=== PATIENT | female | born 1965 | race Caucasian/White ===

== ENCOUNTER → 2017-02-03 | Outpatient (CLI) | payer BC ==
[2017-02-03 07:33] LABS: Urine RBC None Seen /hpf (0 - 4)
[2017-02-03 07:41] LABS: Basophils # (auto) 0.1 uL; Eosinophils # (auto) 0.1 uL; Eosinophils % (auto) 2.4 % (0.0-7.0); Hematocrit 41.8 % (36.0-46.0); Hemoglobin 14.1 g/dL (12.2-16.2); Lymphocytes # (auto) 2.1 uL; Lymphocytes % (auto) 37.5 % (10.0-50.0); Mean Corpuscular Hemoglobin 31.4 pg (28.0-32.0); Mean Corpuscular Hgb Conc. 33.8 g/dL (32.0-36.0); Mean Corpuscular Volume 92.8 fL (80.0-100.0); Mean Platelet Volume 7.9 fL (6.9-10.8); Monocytes # (auto) 0.3 uL; Neutrophils % (auto) 53.1 % (37.0-80.0); Nucleated Red Blood Cells % 0.1 %; Platelet Count (auto) 238 10^3/uL (140-450); Red Cell Distribution Width 13.4 % (11.8-14.3); White Blood Cell 5.7 10^3/uL (4.4-10.8)
[2017-02-03 08:32] LABS: Albumin 4.3 g/dL (3.4-5.0); BUN/Creatinine Ratio 13.5; Bilirubin, Total 0.6 mg/dL (0.2-1.0); Calcium 9.7 mg/dL (8.5-10.1); Potassium 4.3 mmol/L (3.5-5.1); Total Protein 7.9 g/dL (6.4-8.2)
[2017-02-03 08:34] LABS: Urine Bilirubin Negative (Negative); Urine Blood Negative /uL (Negative); Urine Glucose Normal (Normal); Urine Ketone Negative (Negative); Urine Nitrite Negative (Negative); Urine Squamous Epithelial Cell FEW /hpf (<5); Urine Urobilinogen Normal (Negative); Urine pH 7.5 (5.0-8.0)
[2017-02-03 09:25] LABS: Urine Color Straw (Yellow)
== END | disposition home or self-care (01) ==
LOC: LAB 07:20
PROVIDERS: ATTEND Internal Medicine
DX: M25.579 Pain in unspecified ankle and joints of unspecified foot (principal); Z79.899 Other long term (current) drug therapy
CPT/HCPCS: 36415; 80053; 80061; 81001; 82306; 85025

== ENCOUNTER → 2018-03-29 | Outpatient (CLI) | payer BC ==
[2018-03-29 10:19] LABS: Basophils # (auto) 0 uL; Basophils % (auto) 0.4 % (0.0-2.0); Eosinophils # (auto) 0.2 uL; Eosinophils % (auto) 3.5 % (0.0-7.0); Hematocrit 43.6 % (36.0-46.0); Hemoglobin 14.5 g/dL (12.2-16.2); Lymphocytes # (auto) 2.3 uL; Lymphocytes % (auto) 38.6 % (10.0-50.0); Mean Corpuscular Hemoglobin 30.8 pg (28.0-32.0); Mean Corpuscular Hgb Conc. 33.2 g/dL (32.0-36.0); Mean Corpuscular Volume 92.9 fL (80.0-100.0); Monocytes # (auto) 0.4 uL; Monocytes % (auto) 6.4 % (0.0-12.0); Neutrophils % (auto) 51.1 % (37.0-80.0); Nucleated Red Blood Cells % 0.1 %; Platelet Count (auto) 238 10^3/uL (140-450); Red Cell Distribution Width 13.6 % (11.8-14.3); White Blood Cell 5.9 10^3/uL (4.4-10.8)
[2018-03-29 10:44] LABS: Albumin 4.1 g/dL (3.4-5.0); Calcium 9.1 mg/dL (8.5-10.1); Potassium 3.9 mmol/L (3.5-5.1)
[2018-03-29 10:50] LABS: BUN/Creatinine Ratio 13.3; Bilirubin, Total 0.6 mg/dL (0.2-1.0); Total Protein 7.9 g/dL (6.4-8.2)
[2018-03-29 10:57] LABS: Urine Amorphous Crystal FEW /hpf (None Seen); Urine Bacteria MANY /hpf (None Seen); Urine Blood Negative /uL (Negative); Urine Mucus FEW (None Seen); Urine Specific Gravity 1.017 (1.001-1.035); Urine WBC 15 /hpf (0 - 5)
== END | disposition home or self-care (01) ==
LOC: LAB 09:41
PROVIDERS: ATTEND Internal Medicine
DX: M81.0 Age-related osteoporosis without current pathological fracture (principal)
CPT/HCPCS: 36415; 80053; 80061; 81001; 82306; 84439; 84443; 85025; 85652

== ENCOUNTER → 2018-12-21 | Outpatient (CLI) | payer OTHER ==
[2018-12-21 10:31] LABS: Basophils # (auto) 0 uL; Basophils % (auto) 0.6 % (0.0-2.0); Eosinophils # (auto) 0.2 uL; Eosinophils % (auto) 3.8 % (0.0-7.0); Hematocrit 36.9 % (36.0-46.0); Hemoglobin 12.6 g/dL (12.2-16.2); Lymphocytes # (auto) 1.7 uL; Lymphocytes % (auto) 29.5 % (10.0-50.0); Mean Corpuscular Hemoglobin 31.5 pg (28.0-32.0); Mean Corpuscular Hgb Conc. 34.2 g/dL (32.0-36.0); Mean Corpuscular Volume 92.1 fL (80.0-100.0); Monocytes # (auto) 0.9 uL; Monocytes % (auto) 16.2 % (0.0-12.0); Neutrophils # (auto) 2.9 uL; Neutrophils % (auto) 49.9 % (37.0-80.0); Nucleated Red Blood Cells % 0.1 %; Platelet Count (auto) 325 10^3/uL (140-450); Red Blood Cells 4.01 10^6/uL (4.0-5.20); Red Cell Distribution Width 15.7 % (11.8-14.3); White Blood Cell 5.7 10^3/uL (4.4-10.8)
[2018-12-21 12:17] LABS: PROCALCITONIN 0.13 ng/mL (0-0.1)
[2018-12-21 13:16] LABS: Albumin 3.2 g/dL (3.4-5.0); BUN/Creatinine Ratio 8.5; Calcium 9.1 mg/dL (8.5-10.1); Potassium 3.7 mmol/L (3.5-5.1)
[2018-12-21 13:25] LABS: Bilirubin, Total 0.3 mg/dL (0.2-1.0); CRP High Sensitivity 3.79 mg/dL (< 0.3); Pre Albumin 18.4 mg/dL (20.0-40.0); Total Protein 7.2 g/dL (6.4-8.2)
== END | disposition home or self-care (01) ==
LOC: LAB 10:08
DX: T81.30XA Disruption of wound, unspecified, initial encounter (principal); R90.0 Intracranial space-occupying lesion found on diagnostic imaging of central nervous system; C50.919 Malignant neoplasm of unspecified site of unspecified female breast; Z98.890 Other specified postprocedural states
CPT/HCPCS: 36415; 80053; 82040; 84146; 85025; 85652; 86141

== ENCOUNTER → 2020-07-03 | Outpatient (CLI) | payer OTHER | END | disposition home or self-care (01) | LOC: XYW 08:30 | PROVIDERS: ATTEND Internal Medicine | DX: I35.1 Nonrheumatic aortic (valve) insufficiency (principal); I10 Essential (primary) hypertension; C50.919 Malignant neoplasm of unspecified site of unspecified female breast | CPT/HCPCS: 93306 ==

== ENCOUNTER 2023-02-27 21:45 | Inpatient (IN) | payer OTHER ==
[~2023-02-27] VITALS: Ht 162.6 cm; Wt 58.2 kg
[2023-02-27 23:30] VITALS: PULSE 120; RESP 18; O2SAT 100
[2023-02-27 23:59] LABS: Hemoglobin 12.3 g/dL (12.2-16.2)
[2023-02-28 00:01] LABS: Hematocrit 38.6 % (36.0-46.0); Mean Corpuscular Hemoglobin 26.5 pg (28.0-32.0); Mean Corpuscular Volume 82.8 fL (80.0-100.0); Red Blood Cells 4.65 10^6/uL (4.0-5.20); White Blood Cell 6.2 10^3/uL (4.4-10.8)
[2023-02-28 00:07] LABS: Red Cell Distribution Width 24.8 % (11.8-14.3)
[2023-02-28 00:09] LABS: Basophils % (manual) 0 (0.0-2.0); Blast Cells 0; Eosinophils % (manual) 0 (0-7); Metamyelocytes % 0; Myelocytes % 0; Promyelocytes % 0; Reactive Lymphocytes 0
[2023-02-28 00:23] LABS: Lactic Acid w/Reflex 2.9 mmol/L (0.4-2.0)
[2023-02-28 00:27] LABS: Alanine Aminotransferase 11 U/L (7-40); Alkaline Phosphatase 102 U/L (46-116); Anion Gap 8 (5-15); Aspartate Aminotransferase 19 U/L (13-40); BUN/Creatinine Ratio 8.8 (10.0-20.0); Blood Urea Nitrogen 5 mg/dL (9-23); Carbon Dioxide 24 mmol/L (20-30); Chloride 105 mmol/L (98-107); Glucose 103 mg/dL (74-106); Potassium 4.4 mmol/L (3.5-5.1); Sodium 137 mmol/L (136-145)
[2023-02-28 00:28] LABS: Bilirubin, Total 0.9 mg/dL (0.2-1.0); Total Protein 6.3 g/dL (5.7-8.2)
[2023-02-28] MEDS ORDERED: MORPHINE SULFATE 4 MG/ML SYR/VIAL IV PRN (00:30)
[2023-02-28 00:51] LABS: Band Neutrophils % (manual) 12; Lymphocytes % (manual) 10 (10.0-50.0); Monocytes % (manual) 19 (0-12)
[2023-02-28 00:52] LABS: Anisocytosis Moderate; Ovalocytes MODERATE; Platelet Estimate Adequate
[2023-02-28 01:49] LABS: INR 1.07 (0.9-1.15); Partial Thromboplastin Time 25.6 SEC (24.5-34.5); Prothrombin Time 11.2 sec (9.3-11.8)
[2023-02-28 02:26] LABS: Urine Amorphous Crystal FEW /hpf (None Seen); Urine Bacteria NONE SEEN /hpf (None Seen); Urine Blood Negative /uL (Negative); Urine Clarity HAZY (Clear); Urine Color Yellow (Yellow); Urine Mucus FEW (None Seen); Urine Protein, UAD TRACE (Negative); Urine Specific Gravity 1.013 (1.001-1.035); Urine Urobilinogen Normal (Negative); Urine WBC 20 /hpf (0 - 5)
[2023-02-28] MEDS ORDERED: ACETAMINOPHEN 325 MG TAB PO PRN (05:45)
[2023-02-28] MEDS ORDERED: HYDROcodone-ACET 5/325MG TAB PO PRN (05:45)
[2023-02-28] MEDS ORDERED: ONDANSETRON HCL 4 MG/2 ML VIAL IV PRN (05:45)
[2023-02-28] MEDS ORDERED: MORPHINE SULFATE INJ 2 MG/ml SYRG IV PRN (05:45)
[2023-02-28] MEDS: GABAPENTIN 300 MG CAP PO SCH ×3 (06:08→22:14)
[2023-02-28] MEDS: SODIUM CHLORIDE 0.9% 1,000 ML IV SCH ×2 (06:08→19:07)
[2023-02-28 07:25] VITALS: RESP 18; O2SAT 100
[2023-02-28] MEDS: cefTRIAXone 1GM/50ML D5W 50 ML IV SCH (09:08)
[2023-02-28] MEDS: ENOXAPARIN SOD 40 MG/0.4 ML SYRINGE SC SCH (09:55)
[2023-02-28] MEDS ORDERED: IOHEXOL 350 MG/ML 100ML IJ ONE (17:02)
[2023-02-28 20:00] VITALS: PULSE 17; RESP 17; O2SAT 99
[2023-02-28 23:19] VITALS: BP 102/60; PULSE 95; RESP 18; TEMP 98.3; O2SAT 98
[2023-03-01 05:00] VITALS: BP 100/56; PULSE 91; RESP 18; TEMP 98.6; O2SAT 100
[2023-03-01] MEDS: SODIUM CHLORIDE 0.9% 1,000 ML IV SCH (06:02)
[2023-03-01] MEDS: GABAPENTIN 300 MG CAP PO SCH ×3 (06:02→22:17)
[2023-03-01 06:26] LABS: Mean Corpuscular Volume 81.6 fL (80.0-100.0); White Blood Cell 3.3 10^3/uL (4.4-10.8)
[2023-03-01 06:29] LABS: Hematocrit 29.3 % (36.0-46.0); Hemoglobin 9.6 g/dL (12.2-16.2); Mean Corpuscular Hemoglobin 26.7 pg (28.0-32.0); Mean Corpuscular Hgb Conc. 32.7 g/dL (32.0-36.0); Red Blood Cells 3.59 10^6/uL (4.0-5.20)
[2023-03-01 06:39] LABS: Albumin 2.9 g/dL (3.2-4.8); Alkaline Phosphatase 77 U/L (46-116); Anion Gap 9 (5-15); Aspartate Aminotransferase 22 U/L (13-40); BUN/Creatinine Ratio 23.7 (10.0-20.0); Bilirubin, Total 0.7 mg/dL (0.2-1.0); Blood Urea Nitrogen 9 mg/dL (9-23); Calcium 8.3 mg/dL (8.5-10.1); Carbon Dioxide 22 mmol/L (20-30); Chloride 106 mmol/L (98-107); Glucose 69 mg/dL (74-106); Potassium 3.4 mmol/L (3.5-5.1); Sodium 137 mmol/L (136-145); Total Protein 4.6 g/dL (5.7-8.2)
[2023-03-01 07:00] LABS: Red Cell Distribution Width 24.1 % (11.8-14.3)
[2023-03-01 07:02] LABS: Band Neutrophils % (manual) 0; Basophils % (manual) 0 (0.0-2.0); Blast Cells 0; Metamyelocytes % 0; Myelocytes % 0; Promyelocytes % 0; Reactive Lymphocytes 0
[2023-03-01 07:03] LABS: Alanine Aminotransferase < 9 U/L (7-40)
[2023-03-01 08:00] VITALS: RESP 18; O2SAT 98
[2023-03-01 09:00] VITALS: BP 117/71; PULSE 95; RESP 17; TEMP 98.4; O2SAT 98
[2023-03-01] MEDS: cefTRIAXone 1GM/50ML D5W 50 ML IV SCH (09:23)
[2023-03-01] MEDS: ENOXAPARIN SOD 40 MG/0.4 ML SYRINGE SC SCH (09:27)
[2023-03-01 10:15] LABS: Eosinophils % (manual) 3 (0-7); Lymphocytes % (manual) 21 (10.0-50.0); Monocytes % (manual) 23 (0-12)
[2023-03-01 10:16] LABS: Platelet Estimate Decreased
[2023-03-01 13:00] VITALS: BP_SYST 126; BP_SYST 152; BP_DIAS 64; BP_DIAS 75; PULSE 79; PULSE 88; RESP 17; RESP 19; TEMP 98; TEMP 99.2; O2SAT 90; O2SAT 98
[2023-03-01] MEDS ORDERED: POTASSIUM EFFERVESENT TAB 25 MEQ PO ONE (14:30)
[2023-03-01] MEDS: LACTULOSE 20Gm/30ML SOLN PO ONE ×2 (15:15→16:01)
[2023-03-01 15:27] LABS: Hematocrit 28.9 % (36.0-46.0); Hemoglobin 9.2 g/dL (12.2-16.2); Mean Corpuscular Volume 81.4 fL (80.0-100.0); Red Blood Cells 3.54 10^6/uL (4.0-5.20); White Blood Cell 4.8 10^3/uL (4.4-10.8)
[2023-03-01 15:28] LABS: Red Cell Distribution Width 23.7 % (11.8-14.3)
[2023-03-01 15:29] LABS: Basophils % (manual) 0 (0.0-2.0); Blast Cells 0; Eosinophils % (manual) 0 (0-7); Metamyelocytes % 0; Myelocytes % 0; Promyelocytes % 0; Reactive Lymphocytes 0
[2023-03-01] MEDS ORDERED: SENN-58 PO (15:45)
[2023-03-01] MEDS ORDERED: PANT40T PO (15:45)
[2023-03-01] MEDS ORDERED: GABA-1308 PO (15:45)
[2023-03-01] MEDS: metroNIDAZOLE 500MG/100ML 100 ML IV SCH ×2 (15:58→22:12)
[2023-03-01] MEDS: DOCUSATE SOD 100 MG CAP PO SCH ×2 (16:01→22:00)
[2023-03-01 16:47] LABS: Band Neutrophils % (manual) 4; Lymphocytes % (manual) 26 (10.0-50.0); Monocytes % (manual) 21 (0-12); Platelet Estimate Adequate
[2023-03-01 20:00] VITALS: PULSE 86; RESP 16; O2SAT 99
[2023-03-01 22:00] VITALS: BP 97/60; PULSE 86; RESP 16; TEMP 97.9; O2SAT 99
[2023-03-01] MEDS: APIXABAN 5 MG TAB PO SCH (22:17)
[2023-03-02 04:42] VITALS: BP 101/54; PULSE 86; RESP 14; TEMP 98.1; O2SAT 97
[2023-03-02] MEDS: GABAPENTIN 300 MG CAP PO SCH ×3 (05:52→20:50)
[2023-03-02] MEDS: metroNIDAZOLE 500MG/100ML 100 ML IV SCH ×2 (05:53→14:37)
[2023-03-02 08:00] VITALS: PULSE 76; RESP 17; O2SAT 99
[2023-03-02] MEDS ORDERED: IOHEXOL 350 MG/ML 100ML IJ ONE (08:46)
[2023-03-02 09:00] VITALS: BP 107/64; PULSE 76; RESP 17; TEMP 98.1; O2SAT 99
[2023-03-02] MEDS: APIXABAN 5 MG TAB PO SCH ×2 (11:36→20:50)
[2023-03-02] MEDS: DOCUSATE SOD 100 MG CAP PO SCH (11:36)
[2023-03-02] MEDS: cefTRIAXone 1GM/50ML D5W 50 ML IV SCH (11:36)
[2023-03-02 17:00] VITALS: BP 145/75; PULSE 74; RESP 18; TEMP 97.8; O2SAT 97
[2023-03-02] MEDS ORDERED: APIX5TAB PO (17:19)
[2023-03-02] MEDS ORDERED: LEVO500T91 PO (17:19)
[2023-03-02] MEDS ORDERED: METR-344 PO (17:19)
[2023-03-02] MEDS ORDERED: DOCU-265 PO (17:19)
[2023-03-09] MEDS ORDERED: APIXABAN 5 MG TAB PO SCH (10:00)
== END 2023-03-02 21:00 | disposition home health service (06) | DRG 689 ==
LOC: EDSEX 21:45 → ER 21:45 → EDBD 21:45 → OVERFLOW 02-28 05:43 → WEST WING 02-28 21:57
PROVIDERS: ADMIT Nurse Practitioner; ATTEND Internal Medicine
DX: N39.0 Urinary tract infection, site not specified (principal); I26.99 Other pulmonary embolism without acute cor pulmonale; I82.402 Acute embolism and thrombosis of unspecified deep veins of left lower extremity; K59.00 Constipation, unspecified; R62.7 Adult failure to thrive; Z90.13 Acquired absence of bilateral breasts and nipples; Z85.3 Personal history of malignant neoplasm of breast; Z82.3 Family history of stroke; Z68.22 Body mass index [BMI] 22.0-22.9, adult
CPT/HCPCS: 36415; 70450; 71045; 71260; 71275; 74177; 80053; 81001; 83605; 83735; 83880; 84443; 84484; 85007; 85027; 85379; 85610; 85730; 87086; 87088; 87186; 93970; 97110; 97116; 97163; G0378; J0696; J2405; J3490